=== PATIENT | male | born 2000 | race African-American/Black ===

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

== ENCOUNTER 2020-05-26 06:05 | Emergency (ER) | payer OTHER ==
[~2020-05-26] VITALS: Ht 177.8 cm; Wt 77.1 kg
[2020-05-26 06:27] LABS: URINE BILIRUBIN NEGATIVE (Negative); URINE BLOOD NEGATIVE (Negative); URINE CLARITY CLEAR; URINE COLOR YELLOW; URINE GLUCOSE-RANDOM NEGATIVE (Negative); URINE KETONES NEGATIVE (Negative); URINE LEUKOCYTES-REFLEX NEGATIVE (Negative); URINE NITRITE-REFLEX NEGATIVE (Negative); URINE PROTEIN TRACE (Negative)
[2020-05-26] MEDS ORDERED: PYRIDIUM200 MG PO (06:39)
[2020-05-26] MEDS ORDERED: DOXYCYCLINE 10100 MG PO (06:39)
[2020-05-26 06:50] VITALS: BP 152/95
== END 2020-05-26 06:53 | disposition home or self-care (01) ==
LOC: M.ERS 06:05
PROVIDERS: Emergency Medicine
DX: R30.0 Dysuria (principal); F17.210 Nicotine dependence, cigarettes, uncomplicated

== ENCOUNTER 2020-07-19 07:40 | Emergency (ER) | payer OTHER ==
[~2020-07-19] VITALS: Ht 175.3 cm; Wt 74.8 kg
[~2020-07-19 07:40] MED LIST changes: +PYRIDIUM200 MG PO
[2020-07-19 08:30] LABS: ABSOLUTE BASOPHILS 0.1 thou/uL (0.0-0.2); ABSOLUTE LYMPHOCYTES 1.5 thou/uL (0.8-5.3); ABSOLUTE MONOCYTES 0.6 thou/uL (0.0-1.2); ABSOLUTE NEUTROPHILS 6.1 thou/uL (1.6-8.1); BASOPHILS 1.1 %; EOSINOPHILS 0.4 %; HEMATOCRIT 45.9 % (42.0-52.0); HEMOGLOBIN 16.1 gm/dL (14.0-18.0); LYMPHOCYTES 17.8 %; MCH 32.2 pg (26.0-34.0); MCHC 35.1 g/dL (28.0-37.0); MCV 91.6 fL (80.0-100.0); MONOCYTES 7.3 %; MPV 7.4 fl. (7.2-11.1); NUCLEATED RBCS 0 /100WBC; PLATELET COUNT* 262 thou/uL (150-400); POLYS 73.4 %; RBC 5.01 mil/uL (4.50-6.00); RDW-CV 13.6 % (10.5-14.5); WBC 8.3 thou/uL (4.0-11.0)
[2020-07-19 08:37] LABS: APTT 28.8 Seconds (25.0-31.3); PROTIME 10.6 Seconds (9.20-11.50)
[2020-07-19 08:43] LABS: CALCIUM 8.8 mg/dL (8.5-10.1); CREATININE 1.1 mg/dL (0.6-1.3); POTASSIUM 3.9 mmol/L (3.5-5.1)
[2020-07-19 08:57] LABS: ALBUMIN 4.1 g/dL (3.4-5.0); CK-MB MASS 2.2 ng/mL (<0.5-3.6); MAGNESIUM 1.7 mg/dL (1.8-2.4); TOTAL BILIRUBIN 0.6 mg/dL (<0.1-1.0); TOTAL PROTEIN 7.9 g/dL (6.4-8.2)
[2020-07-19 09:00] VITALS: BP 139/97
--- NOTE | 2020-07-19 15:00 | EKG ---
[place] [address] ELECTROCARDIOGRAM REPORT Name: THOMAS JAMES ULI Room: [facility]#: [id number] Admission: 07/19/20 Attend Phys: Discharge: 07/19/20 Date of : 00 Date of Service: 07/19/20 0750 Report #: [id number] THIS REPORT FOR: //name// [facility] ED Test Date: 2020-07-19 Test Time: 07:50:56 Pat Name: THOMAS JAMES Department: Room: Gender: Bid Manager: : 2000 Requested By: Cr Vo Order Number: [id number] MD: Mateo Joseph Measurements Intervals [place] Rate: 78 P: 61 NC: 162 QRS: 5 QRSD: 108 T: 52 QT: 392 QTc: 447 Interpretive Statements Sinus rhythm ST elevation suggests acute pericarditis Baseline wander in lead(s) V3 No previous ECG available for comparison Electronically Signed On 07-19-2020 15:00:20 CDT by Mateo Joseph [email or web address] <ELECTRONICALLY SIGNED> By: Maeto Joseph MD, [facility] 07/19/20 1500 0750 0750 Mateo Joseph MD, [facility] /EPI
== END 2020-07-19 09:01 | disposition home or self-care (01) ==
LOC: M.ERS 07:40
PROVIDERS: Family Medicine
DX: R00.2 Palpitations (principal); F17.210 Nicotine dependence, cigarettes, uncomplicated; F12.90 Cannabis use, unspecified, uncomplicated; Z79.899 Other long term (current) drug therapy

== ENCOUNTER 2021-05-25 14:52 | Emergency (ER) | payer OTHER ==
[~2021-05-25] VITALS: Ht 177.8 cm; Wt 73.0 kg
[2021-05-25] MEDS ORDERED: CEPHALEXIN500 MG PO (15:17)
[2021-05-25 15:46] VITALS: BP 124/70
== END 2021-05-25 15:47 | disposition home or self-care (01) ==
LOC: M.ERS 14:52
DX: S80.812A Abrasion, left lower leg, initial encounter (principal); S80.811A Abrasion, right lower leg, initial encounter; M79.641 Pain in right hand; F17.210 Nicotine dependence, cigarettes, uncomplicated; Z98.890 Other specified postprocedural states; X58.XXXA Exposure to other specified factors, initial encounter; Y93.89 Activity, other specified; Y92.89 Other specified places as the place of occurrence of the external cause; Y99.8 Other external cause status